=== PATIENT | female | born 1985 | race Two or more races ===

== ENCOUNTER 2016-08-14 23:40 | Inpatient (IN) | payer OTHER ==
[~2016-08-14] VITALS: Ht 160 cm; Wt 131.1 kg
[~2016-08-14 23:40] MED LIST: AMOX TR-K CLV1 EAC4 PO; CELEXA40 MG; PRENATAL TABLE1 EAC3 PO; PROZAC20 MG PO
[2016-08-14 23:56] VITALS: BP 148/96
[2016-08-15] VITALS (8 sets, daily range): BP systolic 114–135; BP diastolic 56–85
[2016-08-15 13:03] LABS: HEMATOCRIT 29.1 % (36.0-46.0); MCH 21.8 PG (29.0-34.0); MCHC 30.6 G/DL (30.0-36.0); MCV 71.1 FL (83-99); MEAN PLAT.VOLUME 10.7 uM^3 (9.5-12.4); PLATELET COUNT 239 K/uL (156-360); RBC DIS.WIDTH-CV 16.9 % (11.8-14.6); RBC DIS.WIDTH-SD 43.5 % (39-53); RED BLOOD COUNT 4.09 M/uL (3.80-5.20); WHITE BLOOD COUNT 16.4 K/uL (4.1-10.2)
[2016-08-15 13:16] LABS: EOSINOPHIL (%) 0.2 % (0-5); IMMATURE GRANULOCYTE (%) 1.7 % (0.0-0.7); IMMATURE GRANULOCYTE COUNT 0.3 K/uL; MONOCYTE (%) 6.9 % (3-12); MONOCYTE COUNT 1.1 K/uL (0-0.8); NEUTROPHIL (%) 79.2 % (45-76)
[2016-08-16 07:34] VITALS: BP 119/66
[2016-08-16 07:34] LABS: HEMATOCRIT 29.7 % (36.0-46.0); MCH 22.9 PG (29.0-34.0); MCHC 31.3 G/DL (30.0-36.0); MCV 73.2 FL (83-99); MEAN PLAT.VOLUME 11.4 uM^3 (9.5-12.4); PLATELET COUNT 243 K/uL (156-360); RBC DIS.WIDTH-CV 17.3 % (11.8-14.6); RBC DIS.WIDTH-SD 45.8 % (39-53); RED BLOOD COUNT 4.06 M/uL (3.80-5.20); WHITE BLOOD COUNT 14.3 K/uL (4.1-10.2)
[2016-08-16 07:56] LABS: EOSINOPHIL (%) 0.9 % (0-5); EOSINOPHIL COUNT 0.1 K/uL (0-0.3); HEMATOLOGY COMMENT 1 SMEAR COMPATIBLE; IMMATURE GRANULOCYTE (%) 2.4 % (0.0-0.7); IMMATURE GRANULOCYTE COUNT 0.4 K/uL; LYMPHOCYTE COUNT 2.2 K/uL (1.0-2.8); MONOCYTE (%) 8.4 % (3-12); MONOCYTE COUNT 1.2 K/uL (0-0.8); NEUTROPHIL (%) 72.4 % (45-76); NEUTROPHIL COUNT 10.4 K/uL (1.8-6.4); USER ID BLP
[2016-08-16 14:50] VITALS: BP 128/59
[2016-08-16 22:31] VITALS: BP 116/60
[2016-08-17 07:51] VITALS: BP 122/67
[2016-08-17] MEDS ORDERED: IBUPROFEN800 MG PO (09:26)
== END 2016-08-17 14:10 | disposition home or self-care (01) | DRG 774 ==
LOC: LDRP-OP 23:40 → 2WEST 23:41 → LDRP-OP 09-18 09:25
PROVIDERS: Midwife; Nurse Practitioner
DX: O99.344 Other mental disorders complicating childbirth (principal); O72.1 Other immediate postpartum hemorrhage; O71.4 Obstetric high vaginal laceration alone; E66.9 Obesity, unspecified; F41.8 Other specified anxiety disorders; O62.3 Precipitate labor; Z3A.39 39 weeks gestation of pregnancy; Z37.0 Single live birth; O99.214 Obesity complicating childbirth
CPT/HCPCS: 83030; 85025; 86850; 86900; 86901; G0378; J2590; J2790